=== PATIENT | male | born 1975 | race African-American/Black ===

== ENCOUNTER 2017-02-28 00:01 | Observation (INO) | payer SELFPAY ==
[~2017-02-28] VITALS: Ht 188 cm; Wt 120.0 kg
[2017-02-28] VITALS (10 sets, daily range): BP systolic 130–195; BP diastolic 81–112; PULSE 63–86; RESP 16–18; TEMP 97.8–98.5; O2SAT 98–100
--- NOTE | 2017-02-28 00:47 | RADRPT ---
EXAM DATE/TIME: 02/28/2017 00:19 [facility] COMPARISON: No previous studies available for comparison. INDICATIONS : Chest pain and short of breath. MEDICAL HISTORY : None. SURGICAL HISTORY : None. ENCOUNTER: Initial ACUITY: 1 week PAIN SCORE: 9/10 LOCATION: Bilateral chest FINDINGS: A single view of the chest demonstrates the lungs to be symmetrically aerated without evidence of mas s, infiltrate or effusion. The cardiomediastinal contours are unremarkable. Osseous structures are intact. CONCLUSION: No acute disease. Robin Burgess MD on February 28, 2017 at 0:45 Board Certified Radiologist. This report was verified electronically.
--- NOTE | 2017-02-28 00:52 | PD ---
HPI Chief Complaint: Chest Pain Time Seen by Provider: 00:51 Travel History International Travel<30 days: No Contact w/Intl Traveler<30days: No Traveled to known affect area: No History of Present Illness HPI The patient is a 42 year old male who presents to the [facility] emergency department with a history of chest pain that he reports has intermittently been present for the last year and a half. He reports that he has a history of heavy alcohol use/abuse. He reports that usually gets worse when he drinks alcohol. The patient reports that he had been sober for 5-6 months and then in October began to drink again. He reports that he is drinking a bottle of vodka mixed with juice daily. He reports that he quit drinking alcohol 3 days ago. He reports that in spite of quitting drinking on Monday night he began to have persistent chest pain. He reports that the pain is along the left side of the chest and a sharp in character. He reports that it has been associated with shortness of breath. He denies having any lower extremity edema, calf pain, or erythema. He denies having any prior history of coronary artery disease, DVT, or PE. The patient arrives hypertensive. He reports that he does not see a primary care physician and has not seen a doctor in years. He denies having any known history of hypertension, hyperlipidemia, or diabetes mellitus. He denies smoking cigarettes. On review of systems, he denies any recent fevers, cough, congestion, neck pain, abdominal pain, vomiting, diarrhea, urinary symptoms, or neurologic symptoms. [facility] Past Medical History Narrative Medical The patient's past medical history is significant for alcohol abuse. Medical History: Denies Significant Hx Past Surgical History Surgical History: No Previous Surgery Social History Alcohol Use: Yes (1 PINT DAILY) Tobacco Use: No Substance Use: No Allergies-Medications (Allergen,Severity, Reaction): Coded Allergies: No Known Allergies (Unverified , 02/28/17) Reported Meds & Prescriptions Reported Meds & Active Scripts Active No Active Prescriptions or Reported Medications Review of Systems Except as stated in HPI: all other systems reviewed are Neg General / Constitutional: No: Fever Eyes: No: Visual changes HENT: No: Headaches, Congestion Cardiovascular: Positive: Chest Pain or Discomfort, Dyspnea on exertion, No: Diaphoresis Respiratory: Positive: Shortness of Breath, No: Cough Gastrointestinal: No: Nausea, Vomiting, Diarrhea, Abdominal Pain Genitourinary: No: Dysuria Musculoskeletal: No: Pain Skin: No Rash Neurologic: No: Weakness Psychiatric: No: Depression Endocrine: No: Polydipsia Hematologic/Lymphatic: No: Easy Bruising Physical Exam Narrative General: The patient is a well-developed well-nourished male in no acute distress. Head and Neck exam: Head is normocephalic atraumatic. Eyes: EOMI, pupils are equal round and reactive to light. Nose: Midline septum with pink mucous membranes Mouth: Dentition unremarkable. Moist mucus membranes. Posterior oropharynx is not erythematous. No tonsillar hypertrophy. Uvula midline. Airway patent. Neck: No palpable lymphadenopathy. No nuchal rigidity. No thyromegaly. Cardiovascular: Regular rate and rhythm without murmurs, gallops, or rubs. Lungs: Clear to auscultation bilaterally. No wheezes, rhonchi, or rales. Abdomen: Soft, without tenderness to palpation in all 4 quadrants of the abdomen. No guarding, rebound, or rigidity. Normal bowel sounds are audible. No tenderness on palpation of McBurney's point. Negative Beverly's sign. Extremities: No clubbing, cyanosis, or edema. 2+ pulses in all 4 extremities. No calf tenderness on palpation. Negative Homans sign. Back: No spinous process tenderness to palpation. No costovertebral angle tenderness to palpation. Neurologic Exam: Grossly nonfocal. No tremulousness noted. No asterixis noted. Skin Exam: No rash noted. Intact skin that is warm and dry. Data Data Last Documented VS Vital Signs Date Time Temp Pulse Resp B/P (MAP) Pulse Ox O2 Delivery O2 Flow Rate FiO2 02/28/17 01:13 77 18 164/112 (129) 98 Partial Rebreather 02/28/17 00:02 98.5 Orders Orders Electrocardiogram (02/28/17 00:17) Complete Blood Count With Diff (02/28/17 00:17) Basic Metabolic Panel (Bmp) (02/28/17 00:17) Ckmb (Isoenzyme) Profile (02/28/17 00:17) Troponin I (02/28/17 00:17) Chest, Single Ap (02/28/17 00:17) Iv Access Insert/Monitor (02/28/17 00:17) Ecg Monitoring (02/28/17 00:17) Oxygen Administration (02/28/17 00:17) Oximetry (02/28/17 00:17) CKMB (02/28/17 00:36) CKMB% (02/28/17 00:36) Labs Laboratory Tests Test 02/28/17 00:36 White Blood Count 9.0 TH/MM3 Red Blood Count 4.75 MIL/MM3 Hemoglobin 13.8 GM/DL Hematocrit 41.0 % Mean Corpuscular Volume 86.4 FL Mean Corpuscular Hemoglobin 29.0 PG Mean Corpuscular Hemoglobin Concent 33.6 % Red Cell Distribution Width 14.2 % Platelet Count 204 TH/MM3 Mean Platelet Volume 9.4 FL Neutrophils (%) (Auto) 48.1 % Lymphocytes (%) (Auto) 40.6 % Monocytes (%) (Auto) 8.4 % Eosinophils (%) (Auto) 1.9 % Basophils (%) (Auto) 1.0 % Neutrophils # (Auto) 4.3 TH/MM3 Lymphocytes # (Auto) 3.6 TH/MM3 Monocytes # (Auto) 0.8 TH/MM3 Eosinophils # (Auto) 0.2 TH/MM3 Basophils # (Auto) 0.1 TH/MM3 CBC Comment DIFF FINAL Differential Comment Blood Urea Nitrogen 21 MG/DL Creatinine 1.51 MG/DL Random Glucose 95 MG/DL Calcium Level 8.5 MG/DL Sodium Level 141 MEQ/L Potassium Level 3.5 MEQ/L Chloride Level 107 MEQ/L Carbon Dioxide Level 25.9 MEQ/L Anion Gap 8 MEQ/L Estimat Glomerular Filtration Rate 51 ML/MIN Total Creatine Kinase 461 U/L Creatine Kinase MB 3.2 NG/ML Creatine Kinase MB % 0.7 % Troponin I LESS THAN 0.02 NG/ML MDM Medical Decision Making Medical Screen Exam Complete: Yes Emergency Medical Condition: Yes Medical Record Reviewed: Yes Differential Diagnosis Acute coronary syndrome, versus alcohol withdrawal, versus gastritis, versus acid reflux, versus anxiety disorder, versus pleurisy, versus musculoskeletal pain Narrative Course During the course of the patients emergency department visit, the patients history, examination, and differential diagnosis were reviewed with the patient. The patient had IV access obtained and blood work sent for analysis. The patient was placed on a cardiac rehabilitation program director with oximetry and blood pressure monitoring. An ECG was done on arrival. The patient's ECG on arrival shows a sinus rhythm heart rate of 75, QRS duration is 122 ms with a moderate intraventricular conduction delay, QTC is [address] segment elevation. The patient is noted to have T waves that are inverted in lead 3. The patient was initially provided aspirin 324 mg by mouth 1, nitroglycerin 1 inch the chest wall. The patient was given normal saline a 500 mL bolus. The patient was given Protonix 40 mg IV. The patients laboratory studies were reviewed and remarkable for a CBC that is unremarkable, BMP is remarkable for a BUN of 21, creatinine 1.51, GFR 51, CPK 461, MB percent 0.7, troponin I 0.02 Radiology studies were reviewed and remarkable for a chest x-ray that shows no acute cardiopulmonary disease. The patients results were discussed with the patient, including the plan of care. I explained that further testing and/ or monitoring is indicated based on the patients history, examination, and/ or laboratory findings. Therefore, I recommended admission for additional evaluation. The patient expressed understanding and was agreeable with this plan. The patient was admitted to the hospital in stable condition and sent to a bed under the care of the chest pain center. Diagnosis Primary Impression: Chest pain, rule out acute myocardial infarction Admitting Information Admitting Physician Requests: Observation Scripts No Active Prescriptions or Reported Meds Erica Crews MD Feb 28, 2017 00:52
[2017-02-28 00:53] LABS: AUTOMATED NEUTROPHIL # 4.3 TH/MM3 (1.8-7.7); BASOPHIL # 0.1 TH/MM3 (0-0.2); EOSINOPHIL # 0.2 TH/MM3 (0-0.4); EOSINOPHIL % 1.9 % (0.0-4.0); HEMO FLAGS DIFF FINAL; LYMPH % 40.6 % (9.0-44.0); LYMPHOCYTE # 3.6 TH/MM3 (1.0-4.8); MEAN CELL VOLUME 86.4 FL (80.0-100.0); MEAN CORPUSCULAR HGB CONC 33.6 % (32.0-36.0); MONO % 8.4 % (0.0-8.0); NEUT % 48.1 % (16.0-70.0); PLATELET COUNT 204 TH/MM3 (150-450); RED BLOOD COUNT 4.75 MIL/MM3 (4.50-5.90); RED CELL DISTRIBUTION WIDTH 14.2 % (11.6-17.2)
[2017-02-28 01:09] LABS: ANION GAP 8 MEQ/L (5-15); BICARBONATE 25.9 MEQ/L (21.0-32.0); BLOOD UREA NITROGEN 21 MG/DL (7-18); CHLORIDE 107 MEQ/L (98-107); GLOMERULAR FILTRATION RATE 51 ML/MIN (>89); POTASSIUM 3.5 MEQ/L (3.5-5.1); SODIUM (NA) 141 MEQ/L (136-145)
[2017-02-28 01:13] LABS: CREATINE KINASE 461 U/L (39-308)
[2017-02-28 01:27] LABS: CKMB 3.2 NG/ML (0.5-3.6)
[2017-02-28] MEDS ORDERED: NITROGLYCERIN 2% OINT 1 GM PACKET TOPICAL ONE (02:30)
[2017-02-28] MEDS ORDERED: SODIUM CHLORID 0.9% 500 ML INJ 500 ML IV ONE (02:30)
[2017-02-28] MEDS ORDERED: PANTOPRAZOLE SODIUM 40 MG VIAL IV PUSH ONE (02:30)
[2017-02-28] MEDS ORDERED: ASPIRIN 81 MG CHEW TAB CHEW ONE (02:30)
[2017-02-28] MEDS ORDERED: SODIUM CHLOR 0.9% 1000 ML INJ 1,000 ML IV SCH (03:24)
[2017-02-28] MEDS ORDERED: ACETAMINOPHEN 500 MG CPLT PO PRN (03:30)
[2017-02-28] MEDS ORDERED: SODIUM CHLORIDE 0.9% FLUSH 10 ML FLUSH IV FLUSH PRN (03:30)
[2017-02-28 04:35] LABS: CREATINE KINASE 448 U/L (39-308)
[2017-02-28 08:03] LABS: CREATINE KINASE 429 U/L (39-308)
[2017-02-28 08:16] LABS: CKMB 2.8 NG/ML (0.5-3.6)
[2017-02-28] MEDS ORDERED: PANTOPRAZOLE SOD 40 MG DELAYED RELEASE TAB PO SCH (09:00)
[2017-02-28] MEDS ORDERED: SODIUM CHLORIDE 0.9% FLUSH 10 ML FLUSH IV FLUSH SCH (09:00)
--- NOTE | 2017-02-28 10:53 | HHI.HP ---
HPI Primary Care Physician No Primary Care Physician Chief Complaint Chest pain History of Present Illness This is a 42-year-old male that presents to ED with a clean of having intermittent left-sided chest discomfort for the past year. States is very random. Describes the discomfort as sharp and needlelike. Found nothing in particular bring on the discomfort. States he plays basketball and works out and never has the discomfort while doing this. We'll concerned and was he had a similar discomfort yesterday but it lasted little longer to get short of breath with it. Usually symptoms last about an hour. Prior that no shortness breath. No nausea or diaphoresis with any symptoms. Cannot recall ever having a stress test. Played 2 games of basketball yesterday and also lifted weights yesterday without any chest discomfort. Denies recent illnesses. Denies fevers or chills. Review of Systems General: Patient denies fevers, chills recent, and recent travel HEENT: Patient denies headache, sore throat, difficulty swallowing. Cardiovascular: Has the chest discomfort as mentioned above. Denies sensation of heart beating rapidly or irregularly. No syncope. Denies diaphoresis. Respiratory: He was short of breath yesterday which is unusual for him. Denies inspirational chest discomfort. Denies coughing wheezing or hemoptysis. GI: Patient denies nausea, vomiting, diarrhea, abdominal pain, bloody stools. Musculoskeletal: Patient denies joint pain or edema. Denies calf pain or edema. Neurovascular: Patient denies numbness, tingling, weakness in extremities. Denies headache. Endocrine: Denies polyuria and polydipsia. Hematologic: Denies easy bruising. Skin: Denies rash or itching. Past Family Social History Allergies: Coded Allergies: No Known Allergies (Unverified , 02/28/17) Past Medical History History of alcohol abuse. He had been sober for about 5 or 6 months but then began to drink alcohol again in October. His history of DTs. Denies hypertension , hyperlipidemia, diabetes, and CAD. Past Surgical History Noncontributory. Reported Medications Reported Meds & Active Scripts Active No Active Prescriptions or Reported Medications Active Ordered Medications Current Medications Medications (Trade) Dose Ordered Sig/Kendall Route Start Time Stop Time Status Last Admin Sodium Chloride 1,000 ml @ 100 mls/hr Q10H IV 02/28/17 03:24 02/28/17 03:50 (NS Flush) 2 ml UNSCH PRN IV FLUSH 02/28/17 03:30 (NS Flush) 2 ml BID IV FLUSH 02/28/17 09:00 (Tylenol) 500 mg Q4H PRN PO 02/28/17 03:30 (Protonix) 40 mg DAILY PO 02/28/17 09:00 02/28/17 08:52 Family History Denies family history of CAD. Social History Patient had been sober from alcohol for 5 or 6 months but began drinking in October. States he is drinking about a pint of liquor a day. Has had no alcohol in 3 days. Denies tobacco abuse. Denies illicit drug use. Physical Exam Vital Signs Vital Signs Date Time Temp Pulse Resp B/P (MAP) Pulse Ox O2 Delivery O2 Flow Rate FiO2 02/28/17 08:55 63 02/28/17 08:24 97.8 73 18 134/81 (98) 99 02/28/17 05:12 75 02/28/17 04:42 02/28/17 04:00 98 02/28/17 02:39 84 18 149/103 (118) 100 02/28/17 01:13 77 18 164/112 (129) 98 02/28/17 01:11 77 18 99 Room Air 02/28/17 01:10 16 99 Room Air 02/28/17 00:02 98.5 86 16 195/105 (135) 98 Room Air Physical Exam GENERAL: This is a well-nourished, well-developed patient, in no apparent distress. Patient speaks in clear complete sentences. Patient is pleasant. HEENT: Head is atraumatic and normocephalic. Neck is supple without lymphadenopathy and trachea is midline. No JVD or carotid bruits. CARDIOVASCULAR: Regular rate and rhythm without murmurs, gallops, or rubs. RESPIRATORY: Clear to auscultation. Breath sounds equal bilaterally. No wheezes , rales, or rhonchi. Chest wall is nontender. No use of accessory muscles. GASTROINTESTINAL: Abdomen is nontender, nondistended. Abdomen soft. No obvious pulsatile mass or bruit. No CVA tenderness. Strong femoral pulses bilaterally. Normal bowel sounds in all quadrants. MUSCULOSKELETAL: Patient is moving upper and lower extremities freely. No calf tenderness or edema, no Homans sign. Strong pulses in upper and lower extremities. NEUROLOGICAL: Patient is alert and oriented. Cranial nerves 2-12 are grossly intact. No focal deficits and speech is clear. SKIN: No rash and turgor is normal. Laboratory Laboratory Tests Test 02/28/17 00:36 02/28/17 03:50 02/28/17 07:05 White Blood Count 9.0 Red Blood Count 4.75 Hemoglobin 13.8 Hematocrit 41.0 Mean Corpuscular Volume 86.4 Mean Corpuscular Hemoglobin 29.0 Mean Corpuscular Hemoglobin Concent 33.6 Red Cell Distribution Width 14.2 Platelet Count 204 Mean Platelet Volume 9.4 Neutrophils (%) (Auto) 48.1 Lymphocytes (%) (Auto) 40.6 Monocytes (%) (Auto) 8.4 Eosinophils (%) (Auto) 1.9 Basophils (%) (Auto) 1.0 Neutrophils # (Auto) 4.3 Lymphocytes # (Auto) 3.6 Monocytes # (Auto) 0.8 Eosinophils # (Auto) 0.2 Basophils # (Auto) 0.1 CBC Comment DIFF FINAL Differential Comment Blood Urea Nitrogen 21 Creatinine 1.51 Random Glucose 95 Calcium Level 8.5 Sodium Level 141 Potassium Level 3.5 Chloride Level 107 Carbon Dioxide Level 25.9 Anion Gap 8 Estimat Glomerular Filtration Rate 51 Total Creatine Kinase 461 448 429 Creatine Kinase MB 3.2 3.0 2.8 Creatine Kinase MB % 0.7 0.7 0.7 Troponin I LESS THAN 0.02 LESS THAN 0.02 LESS THAN 0.02 Result Diagram: 02/28/17 0036 02/28/17 0036 Imaging Last 48 hours Impressions Chest X-Ray 02/28/17 0017 Signed Impressions: Service Date/Time: Tuesday, February 28, 2017 00:19 - CONCLUSION: No acute disease. Robin Burgess MD Course EKGs have sinus rhythm with nonspecific T-wave changes. Caprini VTE Risk Assessment Caprini VTE Risk Assessment: No/Low Risk (score <= 1) Caprini Risk Assessment Model Point Value = 1 Point Value = 2 Point Value = 3 Point Value = 5 Age 41-60 Minor surgery BMI > 25 kg/m2 Swollen legs Varicose veins or History of unexplained or recurrent spontaneous Oral contraceptives or hormone replacement Sepsis (< 1 month) Serious lung disease, including pneumonia (< 1 month) Abnormal pulmonary function Acute myocardial infarction Congestive heart failure (< 1 month) History of inflammatory bowel disease Medical patient at bed rest Age 61-74 Arthroscopic surgery Major open surgery (> 45 min) Laparoscopic surgery (> 45 min) Malignancy Confined to bed (> 72 hours) Immobilizing plaster cast Central venous access Age >= 75 History of VTE Family history of VTE Factor V Leiden Prothrombin [id number] Lupus anticoagulant Anticardiolipin antibodies Elevated serum homocysteine Heparin-induced thrombocytopenia Other congenital or acquired thrombophilia Stroke (< 1 month) Elective arthroplasty Hip, pelvis, or leg fracture Acute spinal cord injury (< 1 month) Prophylaxis Regimen Total Risk Factor Score Risk Level Prophylaxis Regimen 0-1 Low Early ambulation 2 Moderate Order ONE of the following: *Sequential Compression Device (SCD) *Heparin 5000 units SQ BID 3-4 Higher Order ONE of the following medications: *Heparin 5000 units SQ TID *Enoxaparin/Lovenox 40 mg SQ daily (WT < 150 kg, CrCl > 30 mL/min) *Enoxaparin/Lovenox 30 mg SQ daily (WT < 150 kg, CrCl > 10-29 mL/min) *Enoxaparin/Lovenox 30 mg SQ BID (WT < 150 kg, CrCl > 30 mL/min) AND/OR *Sequential Compression Device (SCD) 5 or more Highest Order ONE of the following medications: *Heparin 5000 units SQ TID (Preferred with Epidurals) *Enoxaparin/Lovenox 40 mg SQ daily (WT < 150 kg, CrCl > 30 mL/min) *Enoxaparin/Lovenox 30 mg SQ daily (WT < 150 kg, CrCl > 10-29 mL/min) *Enoxaparin/Lovenox 30 mg SQ BID (WT < 150 kg, CrCl > 30 mL/min) AND *Sequential Compression Device (SCD) Assessment and Plan Assessment and Plan * Chest pain: Patient has had serial cardiac enzymes and EKGs for ruling out purposes. He has been seen by Dr. Aly cardiology in the chest pain center. He will undergo a nuclear ETT and be discharged if that is nonischemic. He should follow-up with PCP. * Hypertension: Patient has been hypertensive. We'll start amlodipine. He will need to follow-up with outpatient PCP. * Alcohol abuse: Patient is to refrain from alcohol abuse. Patient is stable at this time. He is agreeable to this plan. Curtis Aragon Feb 28, 2017 10:52
[2017-02-28] MEDS ORDERED: amLODIPine BESYLATE 5 MG TAB PO SCH (12:00)
--- NOTE | 2017-02-28 12:59 | RADRPT ---
EXAM DATE/TIME: 02/28/2017 09:53 [facility] COMPARISON: No previous studies available for comparison. INDICATIONS : Chest pain. Angina DOSE: 35.0 mCi Tc99m Myoview at stress 11.0 mCi Tc99m Myoview at rest REST HEART RATE: 78 BPM TARGET HEART RATE: 150 BPM MAX HEART RATE: 155 BPM REST BLOOD PRESSURE: 138/88 mmHg MAX BLOOD PRESSURE: 142/90 mmHg EJECTION FRACTION: 42% MEDICAL HISTORY : None SURGICAL HISTORY : None. ENCOUNTER: Initial ACUITY: 1 day PAIN SCALE: 2/10 LOCATION: Left chest pain/discomfort. TECHNIQUE: The patient underwent upright treadmill exercise in the chest pain center. Continuous ECG tracing wa s monitored during stress. Gated SPECT imaging was performed after stress, and conventional SPECT im aging was performed at rest. The examination was performed on a SPECT/CT scanner, both attenuation-c orrected and non-corrected datasets were reviewed. FINDINGS: DISTRIBUTION: The maximum perfused segment at stress is in the infralateral wall. PERFUSION STUDY: The pattern of perfusion at stress is within normal limits. GATED STUDY: Mild generalized hypokinesia is identified. Decreased ejection fraction of 42% is measured. CONCLUSION: 1. No evidence of fixed or reversible stress induced perfusion abnormalities. 2. Mild global hypokinesia with decreased ejection fraction. RISK CATEGORY: Low (<1% Annual Mortality Rate) Stephon Duran MD on February 28, 2017 at 12:54 Board Certified Radiologist. This report was verified electronically.
[2017-02-28] MEDS ORDERED: AMLO5TAB2 PO (13:06)
--- NOTE | 2017-02-28 13:07 | HHI.DCPOC ---
Discharge Care Plan Diagnosis: (1) Chest pain (2) Hypertension Goals to Promote Your Health * To prevent worsening of your condition and complications * To maintain your health at the optimal level Directions to Meet Your Goals Take your medications as prescribed Follow your dietary instruction Follow activity as directed Keep your appointments as scheduled Take your immunizations and boosters as scheduled If your symptoms worsen call your PCP, if no PCP go to Urgent Care Center or Emergency Room Smoking is Dangerous to Your Health. Avoid second hand smoke Call the 24-hour hour crisis hotline for domestic abuse at Curtis Aragon Feb 28, 2017 13:07
--- NOTE | 2017-02-28 17:05 | TR ---
Date Performed: 02/28/2017 Time Performed: 10:53:17 DOCTOR: Sonia Aly DRUG LIST: CLINICAL HISTORY: REASON FOR TEST: REASON FOR ENDING: OBSERVATION: CONCLUSION: NUC MADHU ETT. NO CP OR SOB.Maximum TT=048 % Max HR Achieved=88.0% Maximum BX=423/92 Total Exercise Time=11:45 COMMENTS:
--- NOTE | 2017-02-28 17:07 | EKG ---
Date Performed: 02/28/2017 Time Performed: 07:48:31 PTAGE: 42 years EKG: Sinus rhythm NORMAL ECG Since PREVIOUS TRACING , no significant change noted DOCTOR: Sonia Aly Interpretating Date/Time 02/28/2017 17:06:17
--- NOTE | 2017-02-28 17:08 | EKG ---
Date Performed: 02/28/2017 Time Performed: 06:33:52 PTAGE: 42 years EKG: Sinus rhythm NORMAL ECG Since PREVIOUS TRACING , no significant change noted PREVIOUS TRACIN02/28/2017 03.52 DOCTOR: Sonia Aly Interpretating Date/Time 02/28/2017 17:06:28
--- NOTE | 2017-02-28 17:09 | EKG ---
Date Performed: 02/28/2017 Time Performed: 00:23:45 PTAGE: 42 years EKG: Sinus rhythm MODERATE INTRAVENTRICULAR CONDUCTION DELAY BORDERLINE ECG NO PREVIOUS TRACING DOCTOR: Sonia Aly Interpretating Date/Time 02/28/2017 17:07:34
--- NOTE | 2017-02-28 17:09 | EKG ---
Date Performed: 02/28/2017 Time Performed: 03:52:39 PTAGE: 42 years EKG: Sinus rhythm MODERATE INTRAVENTRICULAR CONDUCTION DELAY BORDERLINE ECG Since PREVIOUS TRACING , no significant change noted PREVIOUS TRACIN02/28/2017 00.23 DOCTOR: Sonia Aly Interpretating Date/Time 02/28/2017 17:06:51
== END 2017-02-28 13:47 | disposition home or self-care (01) ==
LOC: NEPE 00:01 → NEDA 02:22 → NEPFCDU 04:23
PROVIDERS: ADMIT Internal Medicine Cardiovascular Disease; ATTEND Internal Medicine Cardiovascular Disease
DX: R07.9 Chest pain, unspecified (principal); R06.02 Shortness of breath; I20.9 Angina pectoris, unspecified; I10 Essential (primary) hypertension; F10.10 Alcohol abuse, uncomplicated
CPT/HCPCS: 71010; 78452; 80048; 82550; 82552; 84484; 85025; 93005; 93017; 96361; 96374; A9502; C9113; G0378; J7030; J7040